=== PATIENT | female | born 1945 | race Caucasian/White ===

== ENCOUNTER 2020-12-11 08:55 | Day surgery (SDC) | payer OTHER ==
--- NOTE | 2020-12-09 16:33 | EKG ---
Test Date: 2020-12-09 Test Time: 09:35:47 Retail Link Analyst: ARELIS MEASUREMENT RESULTS: Intervals: Rate: 62 OK: 148 QRSD: 78 QT: 420 QTc: 426 Ryan: P: 50 OK: 148 QRS: 55 T: 66 INTERPRETIVE STATEMENTS: Normal sinus rhythm Normal ECG Compared to ECG 01/19/2010 06:11:47 Sinus bradycardia no longer present Electronically Signed On 12-09-20 16:32:55 CDT by Pastor Baumann
[2020-12-11] MEDS ORDERED: NA CHLORIDE 0.9% 1,000 ML ONE (09:41)
[2020-12-11] MEDS ORDERED: propofoL 200 MG/20 ML VIAL IV ONE (10:08)
[2020-12-11] MEDS ORDERED: FENTANYL CITR 100 MCG/2 ML ONE (10:08)
[2020-12-11] MEDS ORDERED: MIDAZOLAM HCL 2 MG/2 ML INJ ONE (10:08)
[2020-12-11] MEDS ORDERED: dexAMETHasone 10 MG/ML VIAL ONE (10:08)
[2020-12-11] MEDS ORDERED: LIDOCAINE 1% MPF 5 ML VIAL ONE (10:08)
[2020-12-11] MEDS ORDERED: OXYMETAZOLINE HCL 0.05% 15ML NAS ONE (10:38)
[2020-12-11] MEDS ORDERED: Mastisol Adhesive Liq ONE (10:50)
--- NOTE | 2020-12-11 11:05 | P.BOP ---
Preoperative diagnosis: NASAL FRACTURE Postoperative diagnosis: SAME Primary procedure: CNR WITH STABLIZATION Records Technician: NONE,NONE Estimated blood loss: 20ML Specimen: NONE Findings: SIGNIFICANT B BLEEDING AFTER REDUCTION Anesthesia: General Complications: None Implants: XEROGEL X1 ON RIGHT, X2 ON LEFT Fluids & blood products: CRYSTALLOID 650ML Transferred to: Recovery Room Condition: Good
[2020-12-11] MEDS: MORPHINE 4 MG/ML SYR ONE ×2 (11:38→11:43)
[2020-12-11] MEDS ORDERED: HYDROCODONE/APAP 7.5/325 MG TAB ONE (12:37)
--- NOTE | 2020-12-11 13:26 | OP ---
Date of Procedure: 12/11/2020 Surgeon: Doreen Leung MD Preoperative Diagnosis: Nasal fracture. Postoperative Diagnosis: Nasal fracture with septal perforation and turbinate hypertrophy. Indication For Procedure: Ms. Rodriguez is a 75-year-old who fell injuring her nose with resulting jacobo al deformity. The bilateral nasal bones were symmetrically impacted resulting in a depressed nasal d orsum. Initial considerations were discussed and the patient elected for operative intervention. Du e to the severity of the injury, recommendation was made for procedure in the operating room. Description Of Procedure: The patient was brought to the operating room. She was placed under gener al anesthesia via LMA. After adequate plane of anesthesia, the nasal cavity was examined with a head light and nasal speculum. The turbinates were very large and obstructing the nasal cavity. Afrin an d Afrin-soaked pledgets were applied to aid in decongestion and improve visualization of the nasal ai rway. After removal of the pledgets, the turbinates remained large. The septum was deviated towards the left and there was some concern for a small to medium sized septal perforation, which did not ap pear to be acute as it was overall well healed. The Verdugo elevator was then used to elevate the na anika bones bilaterally in order to restore the dorsal height. Due to the pressure required to perform this maneuver, there was moderate bleeding from both sides of the nose and the nasal vault was packe d with Afrin-soaked pledgets and allowed to sit for about 5 minutes. After removal, there was persis tent mild bleeding on the right and the pledgets were placed for several minutes. After removal of a ll pledgets and confirmation of the pledget count, a resorbable XeroGel hemostatic dressing was appli ed into the right nasal vault and the area remained hemostatic. Two XeroGel dressings were placed wi thin the left nasal vault, 1 more superior and posterior and 1 more anteriorly in order to provide ad equate coverage and protect this mucosa during the healing stages. The oral cavity and oropharynx we re thoroughly suctioned and inspected and there was no evidence of additional bleeding. The Mastisol and Steri-Strips were applied to the external nose and a thermoplastic splint was applied in order t o stabilize the fracture during the initial healing. Complications: None. Estimated Blood Loss: About 20 mL. Disposition: The patient will be discharged home later today in the care of her family. BRUCE Voice ID: [id number] Report ID: [id number]
[2020-12-11 14:01] VITALS: BP 140/50; TEMP 97.9; O2SAT 97
== END 2020-12-11 13:28 | disposition home or self-care (01) ==
LOC: OR 08:55
PROVIDERS: ATTEND Otolaryngology
PROC: 0NSBXZZ Reposition Nasal Bone, External Approach (ICD-10-PCS; principal; 2020-12-11 10:15)
DX: S02.2XXA Fracture of nasal bones, initial encounter for closed fracture (principal); E66.3 Overweight; J34.3 Hypertrophy of nasal turbinates
CPT/HCPCS: 93005; 82947; 21337; J2704; J2250; J3010; J1100; J7030

== ENCOUNTER 2024-09-13 14:58 | Emergency (ER) | payer OTHER ==
[2024-09-13] MEDS ORDERED: ALBUTEROL 2.5 MG/3 ML NEB SOL ONE (15:22)
[2024-09-13] MEDS ORDERED: IPRATROPIUM BROM 0.5MG/2.5ML ONE (15:22)
--- NOTE | 2024-09-13 16:02 | RAD REPORT ---
EXAM: Chest Pa And Lat (2 Views) HISTORY: 79 years Female COUGH COMPARISON: 09/13/2024 FINDINGS: LUNGS/PLEURA: The lungs are clear. No pleural effusions or pneumothorax. No pulmonary edema. CARDIAC/MEDIASTINUM: The cardiac silhouette is within normal limits. UPPER ABDOMEN: No significant abnormality. BONES: No acute abnormality. LINES/TUBES/OTHER: N/A IMPRESSION: No evidence of acute cardiopulmonary disease.
[2024-09-13 16:15] LABS: Influenza A Ag Negative; Influenza B Ag Negative
[2024-09-13 16:16] LABS: SARS-CoV-2 Antigen Rapid Res Positive (Negative)
[2024-09-13] MEDS ORDERED: prednisoLONE 15 MG/5 ML OSYR ONE (16:28)
--- NOTE | 2024-09-13 16:36 | EDPHYS ---
Physician Documentation [facility] Name: Joe Sepulveda Age: 79 yrs Sex: Female : 1945 Arrival Date: 09/13/2024 Time: 14:58 Bed 4 Private MD: ED Physician Bay York HPI: 09/13 15:20 This 79 yrs old Female presents to ER via Ambulatory with complaints of Runny Nose, cp Congestion. 15:20 The patient or guardian reports cough, that is intermittent, difficulty breathing. cp Onset: The symptoms/episode began/occurred 3 day(s) ago. Severity of symptoms: in the emergency department the symptoms are unchanged, despite home interventions. Associated signs and symptoms: Pertinent negatives: chest pain, diarrhea, fever, vomiting. Historical: - Allergies: 15:08 NKA; ap3 - PMHx: 15:08 Diabetes - NIDDM; Hypertension; ap3 - Immunization history:: Client reports receiving the 2nd dose of the Covid vaccine, Flu vaccine is up to date. - Infectious Disease History:: Denies. - Social history:: Smoking status: Patient/guardian denies using tobacco. ROS: 15:25 Constitutional: Positive for body aches, Negative for fever, poor PO intake, cp 15:25 Eyes: Negative for injury, pain, redness, and discharge, cp 15:25 ENT: Negative for drainage from ear(s), ear pain, sore throat, difficulty swallowing, difficulty handling secretions, 15:25 Cardiovascular: Negative for chest pain, edema, palpitations, 15:25 Respiratory: Positive for cough, shortness of breath, 15:25 Abdomen/GI: Negative for abdominal pain, vomiting, diarrhea, constipation, 15:25 Neuro: Negative for altered mental status, dizziness, headache, syncope, 15:25 All other systems are negative, Exam: 15:33 Constitutional: The patient appears in no acute distress, alert, awake, cp non-diaphoretic, non-toxic, well developed, well nourished, obese, 15:33 Head/Face: Normocephalic, atraumatic. cp 15:33 Eyes: Periorbital structures: appear normal, Conjunctiva: normal, no exudate, no injection, Sclera: no appreciated abnormality, Lids and lashes: appear normal, bilaterally, 15:33 ENT: External ear(s): are unremarkable, Ear canal(s): are normal, clear, TM's: dullness, bilaterally, Nose: is normal, Mouth: Lips: moist, Oral mucosa: moist, Posterior pharynx: Airway: no evidence of obstruction, patent, 15:33 Neck: ROM/movement: is normal, is supple, without pain, no range of motions limitations, no meningismus, no nuchal rigidity, 15:33 Chest/axilla: Inspection: normal, 15:33 Cardiovascular: Rate: bradycardic, Edema: is not appreciated, JVD: is not appreciated, 15:33 Respiratory: the patient does not display signs of respiratory distress, Respirations: labored breathing, is not present, shallow respirations, that is mild, Breath sounds: bronchial sounds, that are mild, are heard diffusely, stridor, is not appreciated, 15:33 Abdomen/GI: Inspection: abdomen appears normal, Palpation: abdomen is soft and non-tender, in all quadrants, 15:33 Back: pain, is absent, 15:33 Neuro: Orientation: to person, place \T\ time. Mentation: is normal, Motor: moves all fours, strength is normal, Sensation: no obvious gross deficits, Gait: is steady, Vital Signs: 15:06 BP 131 / 68; Pulse 59; Resp 18; Temp 97.9(O); Pulse Ox 93% on R/A; Weight 111.13 kg; ap3 Height 5 ft. 8 in. ; 15:10 Pulse Ox 95% on R/A; ap3 15:40 Pulse Ox 99% on Nebulizer Mask; ph 16:47 BP 127 / 68; Pulse 58; Resp 18; Temp 97.8; Pulse Ox 95% on R/A; ph 15:06 Body Mass Index 37.25 (111.13 kg, 172.72 cm) ap3 MDM: 15:11 Medical Screening Exam initiated cp 16:35 Data reviewed: vital signs, nurses notes, lab test result(s), radiologic studies, plain cp films, and as a result, I will discharge patient. 16:35 Differential Diagnosis: Bronchitis Influenza Pneumonia Other COVID-19. I considered the cp following discharge prescriptions or medication management in the emergency department Medications were administered in the Emergency Department. See MAR. Care significantly affected by the following chronic conditions: Diabetes, Hypertension. Counseling: I had a detailed discussion with the patient and/or guardian regarding the historical points, exam findings, and any diagnostic results supporting the discharge/admit diagnosis, lab results, radiology results, to return to the emergency department if symptoms worsen or persist or if there are any questions or concerns that arise at home. Response to treatment: the patient's symptoms have mildly improved after treatment, and as a result, I will discharge patient. 09/13 15:16 Order name: COVID-19 Ag + Flu A+B Ag; Complete Time: 16:18 cp 09/13 16:18 Interpretation: Abnormal: SARS RESULT Positive. cp 09/13 15:16 Order name: XRAY Chest Pa And Lat (2 Views); Complete Time: 16:04 cp 09/13 16:04 Interpretation: Report reviewed. cp Administered Medications: 15:27 Drug: Albuterol Inhalation 2.5 mg Inhalation once Route: Inhalation; aa5 16:47 Follow up: Response: No adverse reaction ph 15:27 Drug: Ipratropium Inhalation Aerosol 0.5 mg Inhalation once Route: Inhalation; aa5 16:48 Follow up: Response: No adverse reaction ph 16:47 Drug: prednisoLONE PO Liquid 60 mg PO once Route: PO; ph 16:48 Follow up: Response: No adverse reaction; Medication administered at discharge. ph Disposition Summary: 09/13/24 16:35 Discharge Ordered Notes: Location: Home cp Problem: new cp Symptoms: have improved cp Condition: Stable cp Diagnosis - SARS-associated coronavirus as the cause of diseases classified elsewhere cp Followup: cp - With: Private Physician - When: 2 - 3 days - Reason: Worsening of condition Discharge Instructions: - Discharge Summary Sheet cp - Aspirin and Your Heart cp - COVID-19 cp - How to Protect Yourself and Others - [facility] (08/06/2021) cp - 10 Things You Can Do to Manage Your COVID-19 Symptoms at Home - [facility] (12/25/2020) cp - COVID-19: Quarantine and Isolation - [facility] (09/08/2021) cp - COVID-19: What to Do If You Are Sick - [facility] (08/31/2021) cp Forms: - Medication Reconciliation Form cp - Antibiotic Education cp - Prescription Opioid Use cp - Patient Portal Instructions cp - Leadership Thank You Letter cp Prescriptions: - Bromfed DM 2-30-10 mg/5 mL Oral syrup - administer 10 milliliter ORAL route every 8 hours as needed for cold symptoms; cp 240 milliliter; Refills: 0, Product Selection Permitted - Paxlovid 150-100 mg Oral Tablet, Dose Pack - take 1 dose pack ORAL route as directed on dose pack take ONE 150 mg tablet of cp nirmatrelvir with ONE 100 mg tablet of ritonavir twice daily for 5 days; 20 tablet; Refills: 0, Product Selection Permitted Addendum: 09/16/2024 10:23 Co-signature as Attending Physician, Bay York MD I reviewed the patient's care r n provided by the Advanced Practice Provider and agree with the diagnosis and treatment plan. Signatures: Dispatcher [employer] EDMS Bay York MD MD rn Calderon, Audri, RN RN aa5 Cheryl Horne RN RN ph Martha, Jean, Cate Alaniz cp, RN RN ap3
--- NOTE | 2024-09-13 16:36 | ER ---
Nurse's Notes [facility] Name: Joe Sepulveda Age: 79 yrs Sex: Female : 1945 Arrival Date: 09/13/2024 Time: 14:58 Bed 4 Private MD: Diagnosis: SARS-associated coronavirus as the cause of diseases classified elsewhere Presentation: 09/13 15:06 Chief complaint: Patient states: she has been having cough, congestion and feeling like ap3 it is hard to breath for approx three days. patient denies any fevers or chills. Coronavirus screen: Client presents with at least one sign or symptom that may indicate coronavirus-19. Ebola Screen: No symptoms or risks identified at this time. Resp Distress? No respiratory distress is noted at this time. Initial Sepsis Screen: Does the patient meet any 2 criteria? No. Patient's initial sepsis screen is negative. Does the patient have a suspected source of infection? No. Patient's initial sepsis screen is negative. Risk Assessment: Do you want to hurt yourself or someone else? Patient reports no desire to harm self or others. Onset of symptoms was September 10, 2024. 15:06 Method Of Arrival: Ambulatory ap3 15:06 Acuity: MELISSA 3 ap3 Triage Assessment: 15:09 General: Appears in no apparent distress. Behavior is calm, cooperative, appropriate ap3 for age. Pain: Denies pain. EENT: Reports nasal congestion. Neuro: Level of Consciousness is awake, alert, obeys commands, Oriented to person, place, time, situation, Speech is normal. Cardiovascular: Patient's skin is warm and dry. Respiratory: Reports cough that is Airway is patent Respiratory effort is even, unlabored. Historical: - Allergies: 15:08 NKA; ap3 - PMHx: 15:08 Diabetes - NIDDM; Hypertension; ap3 - Immunization history:: Client reports receiving the 2nd dose of the Covid vaccine, Flu vaccine is up to date. - Infectious Disease History:: Denies. - Social history:: Smoking status: Patient/guardian denies using tobacco. Screenin:09 Abuse screen: Denies threats or abuse. Nutritional screening: No deficits noted. ap3 Tuberculosis screening: No symptoms or risk factors identified. 15:39 [facility] ED Fall Risk Assessment (Adult) History of falling in the last 3 months, ph including since admission No falls in past 3 months (0 pts) Confusion or Disorientation No (0 pts) Intoxicated or Sedated No (0 pts) Impaired Gait No (0 pts) Mobility Assist Device Used No (0 pt) Altered Elimination No (0 pt) Score/Fall Risk Level 0 - 2 = Low Risk Oriented to surroundings, Maintained a safe environment, Hourly rounding (assess needs \T\ fall precautionary measures) done. Assessment: 15:39 General: Appears in no apparent distress. Behavior is calm, cooperative, Denies fever. ph Pain: Denies pain. Neuro: Level of Consciousness is awake, alert, obeys commands, Oriented to person, place, time, situation. Cardiovascular: Capillary refill < 3 seconds in bilateral fingers Patient's skin is warm and dry. Respiratory: Reports cough that is Breath sounds are clear bilaterally. GI: No signs and/or symptoms were reported involving the gastrointestinal system. EENT: Reports nasal congestion nasal discharge. Derm: Skin is pink, warm \T\ dry. 16:47 Reassessment: Patient appears in no apparent distress at this time. Patient and/or ph family updated on plan of care and expected duration. Pain level reassessed. Patient is alert, oriented x 3, equal unlabored respirations, skin warm/dry/pink. Vital Signs: 15:06 BP 131 / 68; Pulse 59; Resp 18; Temp 97.9(O); Pulse Ox 93% on R/A; Weight 111.13 kg; ap3 Height 5 ft. 8 in. ; 15:10 Pulse Ox 95% on R/A; ap3 15:40 Pulse Ox 99% on Nebulizer Mask; ph 16:47 BP 127 / 68; Pulse 58; Resp 18; Temp 97.8; Pulse Ox 95% on R/A; ph 15:06 Body Mass Index 37.25 (111.13 kg, 172.72 cm) ap3 ED Course: 15:01 Patient arrived in ED. al6 15:03 Jean Thomas PA is PHCP. cp 15:03 Bay York MD is Attending Physician. cp 15:08 Triage completed. ap3 15:09 Arm band placed on right wrist. ap3 15:11 Cheryl Horne, BARBARA is Primary Nurse. ph 15:27 COVID swab sent to lab. Flu and/or RSV swab sent to lab. aa5 15:39 Patient has correct armband on for positive identification. Bed in low position. Call ph light in reach. Side rails up X 1. Pulse ox on. NIBP on. Door closed. Noise minimized. 15:51 XRAY Chest Pa And Lat (2 Views) In Process Unspecified. EDMS 16:48 No provider procedures requiring assistance completed. Patient did not have IV access ph during this emergency room visit. Administered Medications: 15:27 Drug: Albuterol Inhalation 2.5 mg Inhalation once Route: Inhalation; aa5 16:47 Follow up: Response: No adverse reaction ph 15:27 Drug: Ipratropium Inhalation Aerosol 0.5 mg Inhalation once Route: Inhalation; aa5 16:48 Follow up: Response: No adverse reaction ph 16:47 Drug: prednisoLONE PO Liquid 60 mg PO once Route: PO; ph 16:48 Follow up: Response: No adverse reaction; Medication administered at discharge. ph Medication: 15:39 VIS not applicable for this client. ph Outcome: 16:35 Discharge ordered by MD. 16:48 Discharged to home ambulatory, with family, ph 16:48 Condition: good 16:48 Discharge instructions given to patient, Instructed on discharge instructions, follow up and referral plans. medication usage, Demonstrated understanding of instructions, follow-up care, medications, Prescriptions given X 2, 16:49 Patient left the ED. ph Signatures: Dispatcher [employer] EDMN Deepika Thornton, RN RN aa5 Cheryl Horne RN RN ph Jean Thomas PA PA cp Prokisch, Amanda, RN RN ap3 Kamilah Stover6
[2024-09-13 16:58] VITALS: BP 127/68; TEMP 97.8; O2SAT 95
== END 2024-09-13 16:49 | disposition home or self-care (01) ==
LOC: ER 14:58
DX: U07.1 COVID-19 (principal); E11.9 Type 2 diabetes mellitus without complications; I10 Essential (primary) hypertension
CPT/HCPCS: 36415; 71046; 99284; 87428; J7510; J7613; J7644